=== PATIENT | female | born 1955 | race Caucasian/White ===

== ENCOUNTER → 2021-02-15 | Outpatient (CLI) | payer OTHER | LOC: HEART 5 14:07 | DX: J44.9 Chronic obstructive pulmonary disease, unspecified (principal) | CPT/HCPCS: 94060; 94729 ==

== ENCOUNTER → 2021-03-01 | Outpatient (CLI) | payer OTHER | LOC: KOH-I 09:00 | DX: J96.11 Chronic respiratory failure with hypoxia (principal); J44.9 Chronic obstructive pulmonary disease, unspecified; R91.1 Solitary pulmonary nodule; F17.200 Nicotine dependence, unspecified, uncomplicated | CPT/HCPCS: 71250 ==

== ENCOUNTER 2021-04-08 15:02 | Inpatient (IN) | payer MEDICARE ==
[~2021-04-08] VITALS: Ht 167.6 cm; Wt 64.9 kg
[2021-04-08 16:00] LABS: HEMOGLOBIN 13.3 gm/dl (12.3-15.3); RED BLOOD COUNT 4.04 M/UL (4.00-5.10); WHITE BLOOD COUNT 22.8 K/UL (4.5-11.0)
[2021-04-08 16:22] LABS: BUN/CREATININE RATIO 14 (0-10)
[2021-04-09 04:55] LABS: HEMOGLOBIN 13.8 gm/dl (12.3-15.3); RED BLOOD COUNT 4.18 M/UL (4.00-5.10); WHITE BLOOD COUNT 19.7 K/UL (4.5-11.0)
[2021-04-09 05:48] LABS: BUN/CREATININE RATIO 21 (0-10)
[2021-04-09] MEDS ORDERED: BREO ELLIPTA 11 EACH INH (10:55)
--- NOTE | 2021-04-09 17:47 | NUR ---
PATIENT ARRIVED ON FLOOR AT 1747. STARTED ABX. GOT PATIENT SETTLED. APPLIED TELEMETRY AND OXYGEN AT 3L. PATIENT IN NO ACCUTE DISTRESS. REPORT WILL BE GIVEN TO DYEING MACHINE FEEDER. PATIENTS CURRENT O2 SAT IS 100%
[2021-04-11] MEDS ORDERED: FAMOTIDINE20 MG PO (13:40)
[2021-04-11] MEDS ORDERED: THERAGRAN M TAB1 EA PO (13:40)
[2021-04-11] MEDS ORDERED: NICOTINE PATCH1 EAC2 TD (13:40)
[2021-04-12] MEDS ORDERED: LEVOFLOXACIN750 MG PO (17:35)
== END 2021-04-12 16:43 | disposition home or self-care (01) | DRG 189 ==
LOC: ER1 15:02 → CDU 18:36 → MED SURG 4 18:36
PROVIDERS: Physician Assistant; ADMIT Internal Medicine Infectious Disease
DX: J96.21 Acute and chronic respiratory failure with hypoxia (principal); J44.1 Chronic obstructive pulmonary disease with (acute) exacerbation; I25.10 Atherosclerotic heart disease of native coronary artery without angina pectoris; Z20.822 Contact with and (suspected) exposure to COVID-19; I10 Essential (primary) hypertension; E11.9 Type 2 diabetes mellitus without complications; J47.9 Bronchiectasis, uncomplicated; F17.210 Nicotine dependence, cigarettes, uncomplicated; Z83.6 Family history of other diseases of the respiratory system; Z79.4 Long term (current) use of insulin
CPT/HCPCS: 0240U; 36600; 71045; 71046; 80053; 81001; 82550; 82553; 82803; 83605; 83874; 84484; 85025; 87040; 87070; 87077; 87186; 87205; 93005; 94640; 94664; 94760; 96374; 96375; 96376; 99285; J0696; J1650; J2543; J2920; J2930